=== PATIENT | male | born 1945 | race Caucasian/White ===

== ENCOUNTER 2017-01-05 07:22 | Day surgery (SDC) | payer OTHER ==
[2017-01-03 14:07] LABS: HEMOGLOBIN 17.1 g/dL (13.7-18.0); WHITE BLOOD COUNT 5.2 x10^3/uL (3.4-10)
[2017-01-03 14:11] LABS: PATH.CAST-FLAG NOT PRESENT; SPERM-FLAG NOT PRESENT; SRC-FLAG NOT PRESENT; XTAL-FLAG NOT PRESENT; YLC-FLAG NOT PRESENT
[2017-01-03 14:20] LABS: BLOOD UREA NITROGEN 17 mg/dL (7-18)
[2017-01-03 14:24] LABS: ASPARTATE AMINO TRANSFERASE 16 U/L (15-37)
[~2017-01-05] VITALS: Ht 185.4 cm; Wt 113.7 kg
[~2017-01-05 07:22] MED LIST: GABA100C PO; ZOLP10TA PO
[2017-01-05] MEDS ORDERED: LACTATED RINGERS 1,000 ML IV SCH ×2 (07:57→08:53)
[2017-01-05 07:58] VITALS: BP 141/97
[2017-01-05] MEDS ORDERED: LIDOCAINE 1%, 2ML SQ PRN (08:00)
[2017-01-05] MEDS ORDERED: MIDAZOLAM 1 MG/ML, 2ML ONE (09:18)
[2017-01-05] MEDS ORDERED: FENTANYL PF 100 MCG/2ML ONE (09:18)
[2017-01-05] MEDS ORDERED: KETOROLAC 30 MG/1 ML IV PRN (09:30)
[2017-01-05] MEDS ORDERED: PROMETHAZINE 25 MG/ML, 1ML IV PRN (09:30)
[2017-01-05] MEDS ORDERED: HYDROmorphone 1 MG/ML, 1ML IV PRN (09:30)
[2017-01-05] MEDS ORDERED: hydrALAzine 20 MG/ML, 1ML IV PRN (09:30)
[2017-01-05] MEDS ORDERED: LABETALOL 5MG/ML, 20ML IV PRN (09:30)
[2017-01-05] MEDS ORDERED: EPHEDRINE 50 MG/ML, 1ML IVPush PRN (09:30)
[2017-01-05] MEDS ORDERED: METOPROLOL 1 MG/ML, 5ML IV PRN (09:30)
[2017-01-05] MEDS ORDERED: OXYcodone 5 MG/5 ML ORAL.SOL UDC PO PRN (09:30)
[2017-01-05] MEDS ORDERED: ONDANSETRON 2MG/ML, 2ML IVPush PRN (09:30)
[2017-01-05] MEDS ORDERED: METOCLOPRAMIDE 5 MG/ML, 2ML IV PRN (09:30)
[2017-01-05] MEDS ORDERED: ACETAMINOPHEN 325 MG TABLET PO PRN (09:30)
[2017-01-05] MEDS ORDERED: MIDAZOLAM 1 MG/ML, 2ML IV PRN (09:30)
[2017-01-05] MEDS ORDERED: ALBUTEROL SULFATE 2.5 MG/3 ML NPPB PRN (09:30)
[2017-01-05] MEDS ORDERED: HYDROcodone/APAP 7.5-325MG/15ML UDC PO PRN (09:30)
[2017-01-05] MEDS ORDERED: FENTANYL PF 100 MCG/2ML IV PRN (09:30)
[2017-01-05] MEDS ORDERED: CEFAZOLIN 1,000 MG ONE (09:42)
[2017-01-05] MEDS ORDERED: SUCCINYLCHOLINE 20 MG/ML, 10ML ONE (09:42)
[2017-01-05] MEDS ORDERED: ONDANSETRON 2MG/ML, 2ML ONE (09:42)
[2017-01-05] MEDS ORDERED: PROPOFOL 10 MG/ML, 20ML ONE (09:42)
[2017-01-05] MEDS ORDERED: ROCURONIUM 10 MG/ML ONE (09:42)
[2017-01-05] MEDS ORDERED: DEXAMETHASONE 4 MG/ML, 1ML ONE (09:42)
[2017-01-05] MEDS ORDERED: ACETAMINOPHEN 325 MG TABLET ONE (11:25)
[2017-01-05] MEDS ORDERED: ACETAMINOPHEN 650 MG/20.3 ML UDC ONE (11:25)
== END 2017-01-05 12:25 ==
LOC: OUT 07:22
PROVIDERS: ATTEND Urology
DX: N20.0 Calculus of kidney (principal); N40.1 Benign prostatic hyperplasia with lower urinary tract symptoms; G62.9 Polyneuropathy, unspecified; Z72.89 Other problems related to lifestyle; Z87.442 Personal history of urinary calculi
CPT/HCPCS: 36415; 50590; 80053; 81001; 85025; 85610; 85730; 87086; 93005; J0330; J0690; J1100; J2250; J2405; J2704; J3010; J7120